=== PATIENT | female | born 1985 | race Caucasian/White ===

== ENCOUNTER 2016-12-12 11:45 | Emergency (ER) | payer SELFPAY ==
[~2016-12-12] VITALS: Ht 162.6 cm; Wt 83.0 kg
[~2016-12-12 11:45] MED LIST: BENZ100 PO
[2016-12-12 11:48] VITALS: BP 118/80; PULSE 87; RESP 16; TEMP 98; O2SAT 98
[2016-12-12] MEDS ORDERED: AMOX875T PO (12:04)
--- NOTE | 2016-12-12 12:04 | PD ---
HPI Chief Complaint: Cold / Flu Symptoms Time Seen by Provider: 12:00 Travel History International Travel<30 days: No Contact w/Intl Traveler<30days: No Traveled to known affect area: No History of Present Illness HPI 31-year-old female presents the emergency Department with a day history of aches and pains, fever, upper respiratory symptoms mainly of sore throat and fevers and chills. Patient has bilateral ear pain more on the right than the left. Patient denies significant sinus congestion or postnasal drip. No cough no nausea no vomiting no diarrhea. Patient feels worse today. Throat pain is 8/10. She has no known drug allergies. PFSH Past Medical History Hx Anticoagulant Therapy: No Diminished Hearing: No ?: Not : 2 Para: 2 Miscarriage: 0 : 0 Past Surgical History Section: Yes Gynecologic Surgery: Yes () Social History Alcohol Use: Yes (SOCIALLY) Tobacco Use: No (FORMER) Substance Use: No Allergies-Medications (Allergen,Severity, Reaction): Coded Allergies: No Known Allergies (Verified , 12/12/16) Reported Meds & Prescriptions Reported Meds & Active Scripts Active Tessalon Perles (Benzonatate) 100 Mg Cap 100 Mg PO TID PRN Review of Systems Except as stated in HPI: all other systems reviewed are Neg General / Constitutional: Positive: Fever, Chills Eyes: No: Visual changes HENT: Positive: Sore Throat, Rhinitis, Rhinorrhea, Congestion, Earache, No: Headaches, Vertigo, Lightheadedness, Nosebleed, Neck Stiffness, Neck Pain, Gingival Bleeding, Dental Difficulties, Ear Discharge Cardiovascular: No: Chest Pain or Discomfort Respiratory: No: Cough, Shortness of Breath, Wheezing Gastrointestinal: No: Nausea, Vomiting, Diarrhea, Abdominal Pain Genitourinary: No: Urgency, Frequency, Dysuria Musculoskeletal: No: Pain Skin: No Rash Neurologic: No: Weakness Psychiatric: No: Depression Endocrine: No: Polydipsia Hematologic/Lymphatic: No: Easy Bruising Physical Exam Narrative GENERAL: She appears ill but not septic. In mild to moderate distress. SKIN: Warm and dry. Mild pallor. Normal turgor. HEAD: Atraumatic. Normocephalic. EYES: Pupils equal and round. No scleral icterus. No injection or drainage. ENT: No nasal bleeding or discharge. Mucous membranes pink and moist. Both TMs are dull bilaterally with serous otitis present. Posterior pharynx has moderate swelling of both tonsillar pillars with localized erythema consistent with strep throat. There is no exudate noted. NECK: Trachea midline. No JVD. CARDIOVASCULAR: Regular rate and rhythm. RESPIRATORY: No accessory muscle use. Clear to auscultation. Breath sounds equal bilaterally. GASTROINTESTINAL: Abdomen soft, non-tender, nondistended. Hepatic and splenic margins not palpable. MUSCULOSKELETAL: Extremities without clubbing, cyanosis, or edema. No obvious deformities. NEUROLOGICAL: Awake and alert. No obvious cranial nerve deficits. Motor grossly within normal limits. Five out of 5 muscle strength in the arms and legs. Normal speech. PSYCHIATRIC: Appropriate mood and affect; insight and judgment normal. Data Data Last Documented VS Vital Signs Date Time Temp Pulse Resp B/P Pulse Ox O2 Delivery O2 Flow Rate FiO2 12/12/16 11:48 98.0 87 16 118/80 98 MDM Medical Decision Making Medical Screen Exam Complete: Yes Emergency Medical Condition: Yes Differential Diagnosis Upper respiratory infection. Fever. Pharyngitis. Strep throat. Narrative Course Patient felt to have strep pharyngitis. Patient is given amoxicillin 875 twice a day 10 days. Patient take [id number] ibuprofen and Tylenol or cough medicine as needed. Work note is given. Patient is to rest, push fluids, use ice chips and popsicles and follow up if symptoms are not improving. Diagnosis Primary Impression: Strep pharyngitis Referrals: Primary Care Physician Patient Instructions: General Instructions, Strep Throat (ED) Departure Forms: Work Release Enter return to work date: Dec 14, 2016 Additional Instructions: Patient felt to have strep pharyngitis. Patient is given amoxicillin 875 twice a day 10 days. Patient take [id number] ibuprofen and Tylenol or cough medicine as needed. Work note is given. Patient is to rest, push fluids, use ice chips and popsicles and follow up if symptoms are not improving. Med/Other Pt SpecificInfo: Prescription(s) given Armando Cervantes Dec 12, 2016 12:04
[2016-12-12] MEDS ORDERED: birth control PO (12:22)
== END 2016-12-12 12:38 | disposition home or self-care (01) ==
LOC: PHEFT 11:45
DX: J02.0 Streptococcal pharyngitis (principal); H92.03 Otalgia, bilateral
CPT/HCPCS: 99283

== ENCOUNTER 2018-02-06 22:26 | Emergency (ER) | payer BC ==
[~2018-02-06] VITALS: Ht 162.6 cm; Wt 93.3 kg
[~2018-02-06 22:26] MED LIST changes: +AMOX875T PO; -BENZ100 PO; +birth control PO
[2018-02-06 22:31] VITALS: BP 124/64; PULSE 100; RESP 18; TEMP 97.2; O2SAT 98
[2018-02-06] MEDS ORDERED: PREN29TA PO (23:09)
--- NOTE | 2018-02-07 00:45 | PD ---
HPI Chief Complaint: Related Problem Time Seen by Provider: 00:42 Travel History International Travel<30 days: No Contact w/Intl Traveler<30days: No Traveled to known affect area: No History of Present Illness HPI The patient is a 32-year-old female, G3, P2, A0 who states she is Rh+ and never needed get RhoGam who complains of some blood when she urinated coming from the vagina. No subsequent bleeding has been noted. She has no cramping and no fever. She denies any dysuria. She is followed by Dr. hilton Gray. COUNTS INCLUDE 234 BEDS AT THE [facility] Past Medical History Hx Anticoagulant Therapy: No Diabetes: Yes (GEESTATIONAL PREG # 2 & 3) Patient Takes Glucophage: No Diminished Hearing: No Tetanus Vaccination: Unknown Influenza Vaccination: No ?: : 3 Para: 2 Miscarriage: 0 : 0 Past Surgical History Section: Yes (X1) Gynecologic Surgery: Yes () Social History Alcohol Use: Yes (SOCIALLY) Tobacco Use: No (FORMER-quit in 2011) Substance Use: No Allergies-Medications (Allergen,Severity, Reaction): Coded Allergies: No Known Allergies (Verified Adverse Reaction, Unknown, 02/06/18) Reported Meds & Prescriptions Reported Meds & Active Scripts Active Reported Plus Iron 29-1 mg ( Vit-Iron Carbonyl) 29 Mg Iron-1 Mg Tab 1 Tab PO DAILY Review of Systems Except as stated in HPI: all other systems reviewed are Neg Physical Exam Narrative GENERAL: Well-nourished, well-developed patient in no apparent distress. Her vital signs are normal except for 100 heart rate. She does not appear anemic. SKIN: Focused skin assessment warm/dry. HEAD: Normocephalic. EYES: No scleral icterus. No injection or drainage. NECK: Supple, trachea midline. No JVD or lymphadenopathy. CARDIOVASCULAR: Regular rate and rhythm without murmurs, gallops, or rubs. RESPIRATORY: Breath sounds equal bilaterally. No accessory muscle use. GASTROINTESTINAL: Abdomen soft, non-tender, nondistended. No guarding or rebound is present. MUSCULOSKELETAL: No cyanosis, or edema. BACK: Nontender without obvious deformity. No CVA tenderness. GENITOURINARY: Normal external genitalia without lesions or erythema. Vaginal vault with a tiny amount of pinkish blood and otherwise white drainage. Cervical os was closed with clear drainage. No cervical motion tenderness. Uterus nontender and nonenlarged. Bilateral adnexa nontender without masses. Data Data Last Documented VS Vital Signs Date Time Temp Pulse Resp B/P (MAP) Pulse Ox O2 Delivery O2 Flow Rate FiO2 02/06/18 22:31 97.2 100 18 124/64 (84) 98 MDM Medical Decision Making Medical Screen Exam Complete: Yes Emergency Medical Condition: Yes Medical Record Reviewed: Yes Differential Diagnosis Threatened AB, Rh- patient, cervical ectopy bleeding, vaginal bleeding resolved Narrative Course Old records indicate the patient's blood type is B+. She is not actively bleeding at this time and does not appear anemic and her vital signs are essentially normal. She apparently lost only a tiny amount of blood. Plan: The patient will follow up with Dr. Gray. She will give him a call later on this morning. Impression: Vaginal bleeding resolved Diagnosis Primary Impression: Vaginal bleeding Additional Instructions: Follow-up with Dr. Gray, give him a call later on this morning. The bleeding appears very minimal without cramping and there is no bleeding at this time. Med/Other Pt SpecificInfo: No Change to Meds Disposition: 01 DISCHARGE HOME Condition: Stable Barrington Szymanski MD Feb 07, 2018 00:45
[2018-02-07 00:55] VITALS: BP 122/68
== END 2018-02-07 00:56 | disposition home or self-care (01) ==
LOC: PHED 22:26
DX: O46.90 Antepartum hemorrhage, unspecified, unspecified trimester (principal)
CPT/HCPCS: 99281